=== PATIENT | male | born 1985 | race African-American/Black ===

== ENCOUNTER 2020-08-31 10:46 | Emergency (ER) | payer MEDICAID ==
[~2020-08-31] VITALS: Ht 165.1 cm; Wt 67.0 kg
[~2020-08-31 10:46] MED LIST: ABIL5 PO; DARU1TAB3 PO; DOLU50TA PO; NEURONTIN; TRUVADA
[2020-08-31 11:34] LABS: EOSINOPHILS % 3.5 % (0.0-5.0); HEMOGLOBIN. 13.8 g/dL (14.0-18.0); LYMPHOCYTES % 31.4 % (20.0-50.0); MEAN CORPUSCULAR HEMOGLOBIN 32.3 pg (28.0-32.0); MEAN PLATELET VOLUME 7.1 fl (7.4-10.4); MONOCYTES % 10.1 % (2.0-8.0); PLATELET 259 x1000/uL (130-400); RED BLOOD CELL COUNT 4.29 mill/uL (4.7-6.1); RED CELL DISTRIBUTION WIDTH 13.1 % (11.6-14.6)
[2020-08-31 11:37] LABS: CHLORIDE 104 mEq/L (98-107)
[2020-08-31 13:48] VITALS: BP 124/71
== END 2020-08-31 13:48 | disposition home or self-care (01) ==
LOC: ER 10:46
DX: R00.2 Palpitations (principal); F15.10 Other stimulant abuse, uncomplicated; Z79.82 Long term (current) use of aspirin
CPT/HCPCS: 36415; 71045; 80053; 83880; 84484; 85025; 93005; 99285

== ENCOUNTER 2020-09-13 16:58 | Emergency (ER) | payer MEDICAID ==
[~2020-09-13] VITALS: Ht 172.7 cm; Wt 78.0 kg
[2020-09-13] MEDS ORDERED: DOLU50TA MT (19:28)
[2020-09-13] MEDS ORDERED: MONT4GRA2 MT (19:28)
[2020-09-13] MEDS ORDERED: DARU1TAB3 PO (19:28)
[2020-09-13] MEDS ORDERED: ALBU90AE INH (19:28)
[2020-09-13 20:53] VITALS: BP 110/66
== END 2020-09-13 21:00 | disposition home or self-care (01) ==
LOC: ER 17:42
DX: J45.909 Unspecified asthma, uncomplicated (principal); F15.10 Other stimulant abuse, uncomplicated; Z76.0 Encounter for issue of repeat prescription; Z79.82 Long term (current) use of aspirin; Z79.899 Other long term (current) drug therapy
CPT/HCPCS: 99281; 99283

== ENCOUNTER 2020-09-22 07:38 | Emergency (ER) | payer MEDICAID ==
[~2020-09-22] VITALS: Ht 170.2 cm; Wt 77.0 kg
[~2020-09-22 07:38] MED LIST changes: +ALBU90AE INH; +DOLU50TA MT; +MONT4GRA2 MT
[2020-09-22 07:43] VITALS: BP 106/83
[2020-09-22] MEDS ORDERED: GUAI600T26 PO (08:02)
[2020-09-22] MEDS ORDERED: ELVI1TAB3 PO (08:02)
== END 2020-09-22 08:18 | disposition home or self-care (01) ==
LOC: ER 07:50
DX: R09.89 Other specified symptoms and signs involving the circulatory and respiratory systems (principal); J45.909 Unspecified asthma, uncomplicated; F15.10 Other stimulant abuse, uncomplicated; Z98.890 Other specified postprocedural states; Z79.899 Other long term (current) drug therapy; Z88.6 Allergy status to analgesic agent
CPT/HCPCS: 99281; 99283

== ENCOUNTER 2020-11-21 09:29 | Emergency (ER) | payer MEDICAID, OTHER ==
[~2020-11-21] VITALS: Ht 170.2 cm; Wt 71.0 kg
[~2020-11-21 09:29] MED LIST changes: +ELVI1TAB3 PO; +GUAI600T26 PO
[2020-11-21] MEDS ORDERED: ELVI1TAB3 PO (11:17)
[2020-11-21 11:43] VITALS: BP 128/76
== END 2020-11-21 11:44 | disposition home or self-care (01) ==
LOC: ER 09:29
DX: Z76.0 Encounter for issue of repeat prescription (principal); R51.9 Headache, unspecified; Z88.6 Allergy status to analgesic agent
CPT/HCPCS: 99283

== ENCOUNTER 2020-12-12 09:04 | Emergency (ER) | payer OTHER ==
[~2020-12-12] VITALS: Ht 170.2 cm; Wt 67.0 kg
[2020-12-12] MEDS ORDERED: ELVI1TAB3 MT (10:06)
[2020-12-12 10:15] VITALS: BP 126/67
== END 2020-12-12 10:16 | disposition home or self-care (01) ==
LOC: ER 09:04
DX: Z76.0 Encounter for issue of repeat prescription (principal); Z79.899 Other long term (current) drug therapy; F15.90 Other stimulant use, unspecified, uncomplicated
CPT/HCPCS: 99283

== ENCOUNTER 2021-02-18 14:56 | Emergency (ER) | payer OTHER ==
[~2021-02-18] VITALS: Ht 170.2 cm; Wt 68.0 kg
[~2021-02-18 14:56] MED LIST changes: +ELVI1TAB3 MT
[2021-02-18 15:15] VITALS: BP 128/77
[2021-02-18 16:13] LABS: CHLORIDE 105 mEq/L (98-107)
[2021-02-18] MEDS ORDERED: ELVI1TAB3 MT (16:35)
== END 2021-02-18 17:32 | disposition home or self-care (01) ==
LOC: ER 14:56
DX: Z76.0 Encounter for issue of repeat prescription (principal); B20 Human immunodeficiency virus [HIV] disease; F15.10 Other stimulant abuse, uncomplicated; Z79.82 Long term (current) use of aspirin
CPT/HCPCS: 36415; 80053; 99283

== ENCOUNTER 2021-03-13 19:55 | Emergency (ER) | payer OTHER ==
[2021-03-14] MEDS ORDERED: ACET-2708 PO (05:59)
[2021-03-14] MEDS ORDERED: AMOX-424 PO (05:59)
[2021-03-14] MEDS ORDERED: ALBU18HF2 IH (05:59)
[2021-03-14] MEDS ORDERED: ELVI1TAB3 MT (05:59)
== END 2021-03-13 21:11 | disposition left against medical advice (07) ==
LOC: ER 19:55
DX: Z53.21 Procedure and treatment not carried out due to patient leaving prior to being seen by health care provider (principal)

== ENCOUNTER 2021-03-14 03:23 | Emergency (ER) | payer OTHER ==
[~2021-03-14] VITALS: Ht 170.2 cm; Wt 73.0 kg
[2021-03-14] MEDS ORDERED: ACETAMINOPHEN 325MG TABLET PO STA (03:40)
[2021-03-14] MEDS ORDERED: ALBUTEROL (0.083%) 2.5MG/3ML NEB HHN STA (04:06)
[2021-03-14] MEDS ORDERED: IPRATROPIUM BROMIDE (0.02%) 0.5MG/2.5ML NEB HHN STA (04:06)
[2021-03-14] MEDS ORDERED: ACET-2708 PO (05:59)
[2021-03-14] MEDS ORDERED: ALBU18HF2 IH (05:59)
[2021-03-14] MEDS ORDERED: AMOX-424 PO (05:59)
[2021-03-14] MEDS ORDERED: ELVI1TAB3 MT (05:59)
[2021-03-14 06:15] VITALS: BP 143/85
== END 2021-03-14 06:40 | disposition home or self-care (01) ==
LOC: ER 03:23
DX: K04.7 Periapical abscess without sinus (principal); J06.9 Acute upper respiratory infection, unspecified; L03.211 Cellulitis of face; B20 Human immunodeficiency virus [HIV] disease; F15.10 Other stimulant abuse, uncomplicated
CPT/HCPCS: 71045; 94640; 99283; Z7610

== ENCOUNTER 2021-04-20 16:35 | Emergency (ER) | payer MEDICAID ==
[~2021-04-20] VITALS: Ht 170.2 cm; Wt 73.0 kg
[~2021-04-20 16:35] MED LIST changes: +ACET-2708 PO; +ALBU18HF2 IH; +AMOX-424 PO
[2021-04-20 16:37] VITALS: BP 120/65
[2021-04-20] MEDS ORDERED: TETRACAINE 0.5% OPHTH DROPS 4ML RIGHTEYE ONE (19:00)
[2021-04-20] MEDS ORDERED: FLUORESCEIN SODIUM 1MG/STRIP RIGHTEYE ONE (19:00)
[2021-04-20] MEDS ORDERED: ELVI1TAB3 MT (19:02)
== END 2021-04-20 19:45 | disposition home or self-care (01) ==
LOC: ER 16:35
DX: Z13.9 Encounter for screening, unspecified (principal); Z76.0 Encounter for issue of repeat prescription; H57.11 Ocular pain, right eye; F17.200 Nicotine dependence, unspecified, uncomplicated; F12.10 Cannabis abuse, uncomplicated; Z88.6 Allergy status to analgesic agent; Z79.899 Other long term (current) drug therapy; Z98.890 Other specified postprocedural states
CPT/HCPCS: 99283

== ENCOUNTER 2021-12-14 11:17 | Emergency (ER) | payer MEDICAID ==
[~2021-12-14] VITALS: Ht 170.2 cm; Wt 73.0 kg
[2021-12-14 11:38] VITALS: BP 106/70
== END 2021-12-14 14:06 | disposition left against medical advice (07) ==
LOC: ER 11:17
DX: Z53.21 Procedure and treatment not carried out due to patient leaving prior to being seen by health care provider (principal)

== ENCOUNTER 2021-12-15 14:44 | Emergency (ER) | payer MEDICAID ==
[~2021-12-15] VITALS: Ht 165.1 cm; Wt 75.0 kg
[2021-12-15 15:01] VITALS: BP 169/100
== END 2021-12-15 19:35 | disposition left against medical advice (07) ==
LOC: ER 14:44
DX: Z53.21 Procedure and treatment not carried out due to patient leaving prior to being seen by health care provider (principal)